=== PATIENT | female | born 1970 | race Caucasian/White ===

== ENCOUNTER 2019-05-04 14:55 | Outpatient (CLI) | payer OTHER ==
[2019-05-04 15:40] LABS: BASOPHILS % 1.2 % (0.0-1.5); NEUTROPHILS # 2.8 # k/uL (1.4-7.7)
[2019-05-04 16:13] LABS: eGFR (Non-African) > 60
== END 2019-05-04 14:57 ==
LOC: LAB 14:55
PROVIDERS: ATTEND Family Medicine
DX: Z13.220 Encounter for screening for lipoid disorders (principal); Z13.0 Encounter for screening for diseases of the blood and blood-forming organs and certain disorders involving the immune mechanism; Z13.29 Encounter for screening for other suspected endocrine disorder
CPT/HCPCS: 36415; 80053; 84443; 85025